=== PATIENT | female | born 1950 | race Caucasian/White ===

== ENCOUNTER 2017-11-06 01:56 | Inpatient (IN) | payer MEDICARE ==
[2017-11-06] MEDS: IV NORMAL SALINE 1000ML BAG 1,000 ML IV ×3 (02:30→14:25)
[2017-11-06 02:39] LABS: BASO # 0.1 x10^3/uL (0.0-0.2); BASO % 1 % (0-3); EOS # 0.1 x10^3/uL (0.0-0.7); EOS % 1 % (0-3); HEMATOCRIT 48.9 % (36.0-47.0); HEMOGLOBIN 16.7 g/dL (12.0-15.5); LYMPH # 1.7 x10^3/uL (1.0-4.8); LYMPH % 10 % (24-48); MEAN CORPUSCULAR HEMOGLOBIN 31 pg (25-35); MEAN CORPUSCULAR HGB CONC 34 g/dL (31-37); MEAN CORPUSCULAR VOLUME 90 fL (79-100); MONO # 0.8 x10^3/uL (0.0-1.1); MONO % 5 % (0-9); NEUT % 84 % (31-73); PLATELET COUNT 260 x10^3/uL (140-400); RED BLOOD COUNT 5.45 x10^6/uL (3.50-5.40); RED CELL DISTRIBUTION WIDTH 13.5 % (11.5-14.5); WHITE BLOOD COUNT 16.7 x10^3/uL (4.0-11.0)
[2017-11-06 02:41] LABS: ADD MAN DIFF? YES
[2017-11-06 02:51] LABS: ANION GAP 12 (6-14); BLOOD UREA NITROGEN 10 mg/dL (7-20); BUN/CREATININE RATIO 11 (6-20); CALCIUM 9.2 mg/dL (8.5-10.1); CARBON DIOXIDE 28 mmol/L (21-32); CHLORIDE 100 mmol/L (98-107); CREATININE 0.9 mg/dL (0.6-1.0); GFR 62.5; GLUCOSE 192 mg/dL (70-99); SODIUM 140 mmol/L (136-145)
[2017-11-06 02:59] LABS: TROPONINI < 0.017 ng/mL (0.000-0.055)
[2017-11-06 03:00] LABS: ALBUMIN 3.8 g/dL (3.4-5.0); ALBUMIN/GLOBULIN RATIO 0.9 (1.0-1.7); ALK PHOS 99 U/L (46-116); ALT (SGPT) 25 U/L (14-59); AST (SGOT) 16 U/L (15-37); MAGNESIUM 2.7 mg/dL (1.8-2.4); TOTAL BILIRUBIN 0.7 mg/dL (0.2-1.0); TOTAL PROTEIN 8.2 g/dL (6.4-8.2)
[2017-11-06 03:03] LABS: % BANDS 5 % (0-9); % LYMPHS 11 % (24-48); % MONOS 6 % (0-10); % SEGS 78 % (35-66); PLT ESTIMATE ADEQUATE (ADEQUATE)
[2017-11-06] MEDS: HYDROcodone/APAP 5/325MG 1 TAB TABLET PO (03:12)
[2017-11-06 05:36] LABS: BILIRUBIN,URINE NEGATIVE (NEG); CLARITY,URINE CLEAR; COLOR,URINE YELLOW; GLUCOSE,URINE NEGATIVE (NEG); NITRITE,URINE NEGATIVE (NEG); PROTEIN,URINE 30 mg/dL (NEG-TRACE); UROBILINOGEN,URINE 0.2 mg/dL (0.2 mg/dL)
[2017-11-06] MEDS: ONDANSETRON PF 4 MG/2 ML VIAL. IV ×2 (05:38→09:03)
[2017-11-06] MEDS: MORPHINE SULFATE 2 MG/ML DISP.SYRIN. IV (05:39)
[2017-11-06 05:45] LABS: AMORPHOUS SEDIMENT,UR PRESENT /HPF; BACTERIA,URINE 0 /HPF (0-FEW); RBC,URINE 0 /HPF (0-2); SQUAMOUS EPITHELIAL CELL,UR FEW /LPF; WBC,URINE 0 /HPF (0-4)
[2017-11-06 08:29] LABS: POC GLUCOSE 154 mg/dL (70-99)
[2017-11-06] MEDS ORDERED: ACETAMINOPHEN 500 MG TABLET PO (08:45)
[2017-11-06] MEDS: oxyCODONE/APAP 5/325 1 TAB TABLET PO ×3 (10:14→17:42)
[2017-11-06 11:38] LABS: POC GLUCOSE 221 mg/dL (70-99)
[2017-11-06] MEDS: LISINOPRIL 10 MG TABLET PO (12:04)
[2017-11-06] MEDS: metFORMIN 500 MG TABLET PO (12:04)
[2017-11-06 16:26] LABS: POC GLUCOSE 92 mg/dL (70-99)
== END 2017-11-06 17:45 | disposition home or self-care (01) | DRG 552 ==
LOC: ER 01:56 → 4 NORTH 05:17
DX: S12.100A Unspecified displaced fracture of second cervical vertebra, initial encounter for closed fracture (principal); D72.828 Other elevated white blood cell count; E11.9 Type 2 diabetes mellitus without complications; I10 Essential (primary) hypertension; K59.00 Constipation, unspecified; W18.30XA Fall on same level, unspecified, initial encounter; R55 Syncope and collapse; Z90.49 Acquired absence of other specified parts of digestive tract; Z90.710 Acquired absence of both cervix and uterus; Y93.89 Activity, other specified; Y92.002 Bathroom of unspecified non-institutional (private) residence as the place of occurrence of the external cause; Y99.8 Other external cause status; Z87.440 Personal history of urinary (tract) infections; Z82.49 Family history of ischemic heart disease and other diseases of the circulatory system; Z79.84 Long term (current) use of oral hypoglycemic drugs; Z79.899 Other long term (current) drug therapy
CPT/HCPCS: 36415; 70450; 72125; 80053; 81001; 82962; 83735; 84484; 85007; 85025; 93005; 96374; 96375; 96376; 99285-25; J2270; J2405; J7030

== ENCOUNTER → 2018-04-04 | Day surgery (SDC) | payer MEDICARE ==
[~2018-04-04] MED LIST: LIDOCAINE 1% PF 2 ML VIAL. ID; LIDOCAINE 2% PF Vial for OR 5 ML VIAL.; MORPHINE SULFATE 2 MG/ML DISP.SYRIN. IV; ONDANSETRON PF 4 MG/2 ML VIAL. IV; PROCHLORPERAZINE 10 MG/2 ML VIAL. IV; PROPOFOL 40 ML IV; fentaNYL PF VIAL 100 MCG/2 ML VIAL IV
[2018-04-04] MEDS: IV RINGERS,LACTATED 1000ML 1,000 ML IV (06:51)
== END | disposition home or self-care (01) ==
LOC: ENDOS 06:17
DX: Z12.11 Encounter for screening for malignant neoplasm of colon (principal); K64.0 First degree hemorrhoids; Z86.010 Personal history of colon polyps; I10 Essential (primary) hypertension; E11.9 Type 2 diabetes mellitus without complications; F32.9 Major depressive disorder, single episode, unspecified; Z85.42 Personal history of malignant neoplasm of other parts of uterus; Z98.890 Other specified postprocedural states; Z79.899 Other long term (current) drug therapy; Z79.84 Long term (current) use of oral hypoglycemic drugs; Z90.49 Acquired absence of other specified parts of digestive tract; Z90.710 Acquired absence of both cervix and uterus; Z80.3 Family history of malignant neoplasm of breast; Z72.89 Other problems related to lifestyle; Z90.79 Acquired absence of other genital organ(s); Z90.721 Acquired absence of ovaries, unilateral
CPT/HCPCS: 45378; G0105; J2001; J2704

== ENCOUNTER → 2018-05-29 | Outpatient (CLI) | payer MEDICARE ==
[2018-04-04 08:01] VITALS: BP 102/59
[~2018-05-29] MED LIST changes: +AMOX1TAB61 PO; +ESCITALOPRAM OX10 MG PO; -LIDOCAINE 1% PF 2 ML VIAL. ID; -LIDOCAINE 2% PF Vial for OR 5 ML VIAL.; +LISI-334 PO; +LISI10TA2 PO; +METF500T5 PO; -MORPHINE SULFATE 2 MG/ML DISP.SYRIN. IV; +ONDA4TAB10 PO; -ONDANSETRON PF 4 MG/2 ML VIAL. IV; +OXYC-323 PO; +POLY17PO29 PO; -PROCHLORPERAZINE 10 MG/2 ML VIAL. IV; -PROPOFOL 40 ML IV; -fentaNYL PF VIAL 100 MCG/2 ML VIAL IV
--- NOTE | 2018-05-29 18:38 | RAD ---
CLINICAL HISTORY: Bilateral thyroid nodules COMPARISON: Thyroid ultrasound May 07, 2018. PROCEDURE: Preliminary sonographic images of the thyroid were obtained. Bilateral thyroid nodules are again seen.. The procedure and risks of ultrasound guided aspiration were explained to the patient and informed written consent obtained. Verification pause/timeout was observed. Laterality was confirmed. The site of biopsy was marked. Using standard sterile technique, 4 25 G fine needle aspirations of the left and right thyroid nodules were obtained. There were no immediate complications. IMPRESSION: Successful left and right thyroid nodule FNA. Electronically signed by: Dima Harding MD (05/29/2018 6:34 PM) [facility]
== END | disposition home or self-care (01) ==
LOC: US 09:48
PROVIDERS: ATTEND Surgery
DX: E04.1 Nontoxic single thyroid nodule (principal); I10 Essential (primary) hypertension; F32.9 Major depressive disorder, single episode, unspecified; E11.9 Type 2 diabetes mellitus without complications; Z79.899 Other long term (current) drug therapy; Z72.89 Other problems related to lifestyle; Z90.710 Acquired absence of both cervix and uterus; Z90.49 Acquired absence of other specified parts of digestive tract; Z90.721 Acquired absence of ovaries, unilateral; Z79.84 Long term (current) use of oral hypoglycemic drugs; Z98.890 Other specified postprocedural states; Z86.010 Personal history of colon polyps; Z85.42 Personal history of malignant neoplasm of other parts of uterus; Z80.3 Family history of malignant neoplasm of breast
CPT/HCPCS: 76942

== ENCOUNTER → 2021-09-05 | Outpatient (CLI) | payer MEDICARE ==
[2018-04-04 08:01] VITALS: BP 102/59
[~2021-09-05] MED LIST changes: +LIDOCAINE 1% Multi-Dose 20 ML VIAL. INJ ONE; +LIDOCAINE 1%/EPI 1:100,000 20 ML VIAL. INJ ONE; -LISI-334 PO; +LISI10TA16 PO; -LISI10TA2 PO; +LISI20TA18 PO; +METF500T16 PO; -METF500T5 PO; -OXYC-323 PO; +OXYC1TAB15 PO
--- NOTE | 2021-09-05 13:44 | RAD ---
EXAM: 1. STEREOTACTICALLY GUIDED VACUUM ASSISTED RIGHT BREAST CORE BIOPSY. 2. POSTCLIP DIGITAL RIGHT MAMMOGRAPHY. 3. SPECIMEN RADIOGRAPH. HISTORY: Right breast microcalcifications. Stereotactic biopsy is requested. FINDINGS: The procedure and its risks and benefits were discussed with the patient. Risks discussed i ncluded, but were not limited to, pain, infection, bleeding and need for repeat biopsy. The patient p rovided verbal and written consent. A timeout procedure was performed. The target calcifications superolaterally were localized stereotactically. The overlying skin was alex rilely prepped and infiltrated with 1% lidocaine for local anesthesia. The deeper soft tissues were i nfiltrated with lidocaine with epinephrine for anesthesia and hemostasis. [facility], the patient developed a vasovagal reaction and had difficulty maintaining body position. A 9 gauge vacuum-assisted core biopsy system was advanced to the target under stereotactic guidance. The patient's vasovagal response progressed and the procedure was completed quickly well holding the pat ient to maintain posture. 6 core biopsy specimens were obtained. A specimen radiograph demonstrated s ome calcifications within the specimen. A postbiopsy clip was placed and postoperative images were ob tained. Instrumentation was withdrawn and pressure held and hemostasis after placing the patient supi ne with legs elevated. Her symptoms improved while supine, but took approximately 45 minutes to resol ve. Blood pressure readings were approximately 100/60, but this resolved spontaneously. Blood glucose was checked and 148. A sterile dressing was placed. There were no immediate complications. Postclip digital right mammography was obtained in CC and MLO projections and interpreted on a [employer] workstation. The postbiopsy clip is 12 mm anterior to the target calcifications. Some of these we re sampled, but the main cluster does not appear to have been sampled. There are mild postprocedural changes. IMPRESSION: 1. Stereotactic biopsy of the right upper outer clustered calcifications was complicated by a vasovag al response during the procedure. Only the most anterior aspect of the region of interest appears to have been sampled. Additional samples could not be obtained while the patient remained symptomatic. T shanta findings were discussed with the patient, and she elected not to repeat the procedure today. It was planned to reevaluate after review of pathologic results. Based on those results, repeat biopsy v ersus a period of more frequent follow-up could be considered. 2. Some target calcifications are included on the specimen radiograph. 3. Postclip mammography demonstrates the postbiopsy clip 1.2 cm anterior to the main cluster of calci fications. Electronically signed by: Ash Bell MD (09/05/2021 1:42 PM) [id number]
== END | disposition home or self-care (01) ==
LOC: MAMMO 08:02
PROVIDERS: ATTEND Physician Assistant
DX: R92.0 Mammographic microcalcification found on diagnostic imaging of breast (principal); R92.8 Other abnormal and inconclusive findings on diagnostic imaging of breast; I10 Essential (primary) hypertension; E11.9 Type 2 diabetes mellitus without complications; F32.9 Major depressive disorder, single episode, unspecified; Z90.710 Acquired absence of both cervix and uterus; Z90.49 Acquired absence of other specified parts of digestive tract; Z98.890 Other specified postprocedural states; Z79.84 Long term (current) use of oral hypoglycemic drugs; Z79.899 Other long term (current) drug therapy
CPT/HCPCS: 19081; 77065; J3490

== ENCOUNTER → 2021-09-05 | Outpatient (CLI) | payer MEDICARE ==
[2018-04-04 08:01] VITALS: BP 102/59
--- NOTE | 2021-09-05 10:44 | NUR ---
Called to mammorgram for pt not feeling well following breast biopsy. Pt found lying in stretcher chair, c/o feeling weak and having throat tightness. Pt pale, alert and oriented x 3. Serial BPs taken 96/57, 104/59, 97/57, 94/56, 109/57 over 30 minutes. Pt cont to improve over this time, water and crackers provided. Blood sugar checked at 1022- 148. Pt dressed and escorted to [facility], sig other present to take pt home. Addendum: 09/05/21 at 1053 by ABRAN DECKER RN Dr Ray malagon and arrived to examine pt.
== END | disposition home or self-care (01) ==
LOC: US 08:09
PROVIDERS: ATTEND Physician Assistant
DX: R92.8 Other abnormal and inconclusive findings on diagnostic imaging of breast (principal); Z53.8 Procedure and treatment not carried out for other reasons; I10 Essential (primary) hypertension; E11.9 Type 2 diabetes mellitus without complications; F32.9 Major depressive disorder, single episode, unspecified; Z90.49 Acquired absence of other specified parts of digestive tract; Z90.710 Acquired absence of both cervix and uterus; Z98.890 Other specified postprocedural states; Z79.899 Other long term (current) drug therapy; Z79.84 Long term (current) use of oral hypoglycemic drugs; Z88.8 Allergy status to other drugs, medicaments and biological substances
CPT/HCPCS: J3490 ×2